=== PATIENT | female | born 1950 | race Caucasian/White ===

== ENCOUNTER → 2020-12-09 | Outpatient (CLI) | payer MEDICARE | LOC: EXRD 13:45 | DX: R79.89 Other specified abnormal findings of blood chemistry (principal); M06.09 Rheumatoid arthritis without rheumatoid factor, multiple sites; M19.042 Primary osteoarthritis, left hand; M19.041 Primary osteoarthritis, right hand; M25.542 Pain in joints of left hand; M25.541 Pain in joints of right hand | CPT/HCPCS: 73130 ==

== ENCOUNTER → 2020-12-16 | Outpatient (CLI) | payer MEDICARE | LOC: EXRD 15:38 | DX: R76.12 Nonspecific reaction to cell mediated immunity measurement of gamma interferon antigen response without active tuberculosis (principal) | CPT/HCPCS: 71046 ==